=== PATIENT | male | born 1980 | race American Indian/Alaskan Native ===

== ENCOUNTER 2020-10-18 05:00 | Emergency (ER) | payer MEDICARE ==
--- NOTE | 2020-10-18 05:24 | Emergency Department Report ---
ED Back Pain/Injury HPI - General Stated Complaint: BACK PAIN Time Seen by Provider: 10/18/20 05:13 - History of Present Illness MD Complaint: back pain -: month(s) Similar Symptoms Previously: Yes Place: home Radiation: none Severity: mild Quality: dull, aching Consistency: constant Worsens With: movement Context: unknown Associated Symptoms: denies: weakness, chest pain, numbness, incontinence, constipation, headaches, loss of appetite - Related Data Home Medications Medication Instructions Recorded Confirmed Last Taken FLUoxetine HCL [PROzac] 60 mg PO DAILY 04/19/15 04/19/15 Unknown Seroquel 100 mg PO QHS 04/19/15 04/19/15 Unknown clonazePAM [ Klonopin] 0.5 mg PO TID 04/19/15 04/19/15 Unknown risperiDONE [RisperDAL] 4 mg PO BID 04/19/15 04/19/15 Unknown Previous Rx's Medication Instructions Recorded Last Taken Type Ketorolac [Toradol] 10 mg PO Q6H PRN #14 tablet 10/18/20 Unknown Rx methOCARBAMOL [Robaxin TAB] 500 mg PO Q6H PRN #20 tablet 10/18/20 Unknown Rx Allergies Allergy/AdvReac Type Severity Reaction Status Date / Time No Known Allergies Allergy Verified 04/19/15 04:56 ED Review of Systems ROS: Stated complaint: BACK PAIN Other details as noted in HPI Comment: All other systems reviewed and negative ED Past Medical Hx - Past Medical History Hx Psychiatric Treatment: Yes (BIPOLAR SCHIZOPRENIA DEPRESSION) - Surgical History Hx Appendectomy: Yes Additional Surgical History: BACK SURGERY - Social History Smoking Status: Current Every Day Smoker Substance Use Type: None - Medications Home Medications: Home Medications Medication Instructions Recorded Confirmed Last Taken Type FLUoxetine HCL [PROzac] 60 mg PO DAILY 04/19/15 04/19/15 Unknown History Seroquel 100 mg PO QHS 04/19/15 04/19/15 Unknown History clonazePAM [ Klonopin] 0.5 mg PO TID 04/19/15 04/19/15 Unknown History risperiDONE [RisperDAL] 4 mg PO BID 04/19/15 04/19/15 Unknown History Ketorolac [Toradol] 10 mg PO Q6H PRN #14 tablet 10/18/20 Unknown Rx methOCARBAMOL [Robaxin TAB] 500 mg PO Q6H PRN #20 tablet 10/18/20 Unknown Rx ED Physical Exam - General General appearance: alert, in no apparent distress - Head Head exam: Present: atraumatic, normocephalic - Eye Eye exam: Present: normal appearance - ENT ENT exam: Present: mucous membranes moist - Neck Neck exam: Present: normal inspection, full ROM - Respiratory Respiratory exam: Present: normal lung sounds bilaterally. Absent: respiratory distress - Cardiovascular Cardiovascular Exam: Present: regular rate, normal rhythm. Absent: systolic murmur, diastolic murmur, rubs, gallop - GI/Abdominal GI/Abdominal exam: Present: soft, normal bowel sounds - Rectal Rectal exam: Present: deferred - Extremities Exam Extremities exam: Present: normal inspection, normal capillary refill - Back Exam Back exam: Present: normal inspection, muscle spasm, paraspinal tenderness. Absent: CVA tenderness (R), CVA tenderness (L) - Neurological Exam Neurological exam: Present: alert, oriented X3, CN II-XII intact, normal gait, other (Gait coordinated and smooth patient is able to carry 2 very large heavy bags across the emergency department with no complications able to bend over to lift push and pull those large bags as well). Absent: abnormal gait, motor sensory deficit, reflexes normal - Psychiatric Psychiatric exam: Present: normal affect, normal mood. Absent: anxious, flat affect, manic - Skin Skin exam: Present: warm, dry, intact, normal color. Absent: rash ED Medical Decision Making - Medical Decision Making Pt presents the emergency department complaining of back pain most consistent with lumbago back Pain Most Consistent with Strain/Contusion. Differential Diagnosis Includes Lumbar Go Versus Musculoskeletal Spasm, Strain Versus Sciatica. No Back Pain Red Flags on History or Physical. Presentation Not Consistent with Malignancy, Fracture, Cauda Equina, Abdominal Aortic Aneurysm, Viscus Perforation, Pulmonary Embolism, Renal Colic, Pyelonephritis. Patient reports no B symptoms, trauma trauma, incontinence, saddle anesthesia, distal weakness, urinary symptoms and is a febrile. Critical care attestation.: If time is entered above; I have spent that time in minutes in the direct care of this critically ill patient, excluding procedure time. ED Disposition Clinical Impression: Lumbago Disposition: - TO HOME OR SELFCARE Is pt being admited?: No Does the pt Need Aspirin: No Condition: Stable Instructions: Back Injury Prevention, [id number], Back Exercises, [id number], Chronic Back Pain Prescriptions: methOCARBAMOL [Robaxin TAB] 500 mg PO Q6H PRN #20 tablet PRN Reason: back pain and spasms Ketorolac [Toradol] 10 mg PO Q6H PRN #14 tablet PRN Reason: Pain Referrals: SANDRA FREIRE MD [Staff Physician] - 3-5 Days
[2020-10-18 05:39] VITALS: BP 147/93
== END 2020-10-18 05:30 | disposition home or self-care (01) ==
LOC: ED 05:00
DX: M54.5 Low back pain (principal); F31.9 Bipolar disorder, unspecified; F20.9 Schizophrenia, unspecified; F17.200 Nicotine dependence, unspecified, uncomplicated; Z90.49 Acquired absence of other specified parts of digestive tract; Z98.890 Other specified postprocedural states; Z79.899 Other long term (current) drug therapy
CPT/HCPCS: 99281; 99282

== ENCOUNTER 2021-12-23 23:52 | Emergency (ER) | payer MEDICARE ==
[2021-12-24 02:27] VITALS: BP 146/96
[2021-12-24 03:11] LABS: Amphetamine Screen,Urine PRESUMPTIVE NEGATIVE; Benzodiazepines Screen,Urine PRESUMPTIVE NEGATIVE; Cannabinoid Screen,Urine PRESUMPTIVE POSITIVE; Cocaine Screen,Urine PRESUMPTIVE NEGATIVE; Methadone Screen,Urine PRESUMPTIVE NEGATIVE; Opiate Screen,Urine PRESUMPTIVE NEGATIVE
[2021-12-24 03:35] LABS: Bilirubin,Urine NEG (Negative); Blood,Urine NEG (Negative); Color,Urine Yellow (Yellow); Mucus,Urine 1+ /HPF; Urobilinogen,Urine < 2.0 mg/dL (<2.0)
[2021-12-24 03:39] LABS: Basophils # (Auto) 0.1 K/mm3 (0.0-0.1); Basophils % (Auto) 0.9 % (0.0-1.8); Eosinophils # (Auto) 0.2 K/mm3 (0.0-0.4); Eosinophils % (Auto) 2.4 % (0.0-4.3); Hematocrit 36.9 % (35.5-45.6); Lymphocytes # (Auto) 2.9 K/mm3 (1.2-5.4); Lymphocytes % (Auto) 36.1 % (13.4-35.0); Mean Corpuscular HGB Conc 33 % (32-34); Mean Corpuscular Volume 87 fl (84-94); Monocytes # (Auto) 0.9 K/mm3 (0.0-0.8); Monocytes % (Auto) 11.1 % (0.0-7.3); Platelet Count 432 K/mm3 (140-440); Red Blood Count 4.26 M/mm3 (3.65-5.03); Red Cell Distribution Width 15.3 % (13.2-15.2)
[2021-12-24 03:58] LABS: Alanine Aminotransferase 14 units/L (7-56); Albumin 4.5 g/dL (3.9-5); BUN/Creatinine Ratio 8; Blood Urea Nitrogen 11 mg/dL (9-20); Calcium 9.6 mg/dL (8.4-10.2); Hemolysis Index 5
--- NOTE | 2021-12-24 06:16 | Emergency Department Report ---
ED Medical Clearance HPI - General Chief complaint: Medical Clearance Stated complaint: MEDICAL CLEARANCE Time Seen by Provider: 12/24/21 06:10 Source: patient Mode of arrival: Ambulatory - History of Present Illness Initial comments: 41-year-old male with history of bipolar, schizophrenia,depression and illicit drug abuse who presents to the emergency room for medical clearance so he could go to drug rehab. Patient denies any suicidal homicidal ideation. Patient also denies any chest pain, shortness of breath or palpitation. No cold or hot intolerance reported. Patient mentioned that he was trying to stay away from negative energy around him, and also others doing drugs. Patient denies any other modifying or associated factors. Home medications: Home Medications Medication Instructions Recorded Confirmed Last Taken FLUoxetine HCL [PROzac] 60 mg PO DAILY 04/19/15 04/19/15 Unknown Seroquel 100 mg PO QHS 04/19/15 04/19/15 Unknown clonazePAM [ Klonopin] 0.5 mg PO TID 04/19/15 04/19/15 Unknown risperiDONE [RisperDAL] 4 mg PO BID 04/19/15 04/19/15 Unknown Previous Rx's Medication Instructions Recorded Last Taken Type Ketorolac [Toradol] 10 mg PO Q6H PRN #14 tablet 10/18/20 Unknown Rx methOCARBAMOL [Robaxin TAB] 500 mg PO Q6H PRN #20 tablet 10/18/20 Unknown Rx Allergies/Adverse reactions: Allergies Allergy/AdvReac Type Severity Reaction Status Date / Time No Known Allergies Allergy Verified 04/19/15 04:56 ED Review of Systems ROS: Stated complaint: MEDICAL CLEARANCE Other details as noted in HPI Comment: All other systems reviewed and negative Constitutional: denies: weakness Cardiovascular: denies: chest pain, palpitations Psychiatric: other (Medical clearance so he could go to drug rehab) ED Past Medical Hx - Past Medical History Hx Psychiatric Treatment: Yes (BIPOLAR SCHIZOPRENIA DEPRESSION) - Surgical History Hx Appendectomy: Yes Additional Surgical History: BACK SURGERY - Social History Smoking Status: Current Every Day Smoker Substance Use Type: Marijuana - Medications Home Medications: Home Medications Medication Instructions Recorded Confirmed Last Taken Type FLUoxetine HCL [PROzac] 60 mg PO DAILY 04/19/15 04/19/15 Unknown History Seroquel 100 mg PO QHS 04/19/15 04/19/15 Unknown History clonazePAM [ Klonopin] 0.5 mg PO TID 04/19/15 04/19/15 Unknown History risperiDONE [RisperDAL] 4 mg PO BID 04/19/15 04/19/15 Unknown History Ketorolac [Toradol] 10 mg PO Q6H PRN #14 tablet 10/18/20 Unknown Rx methOCARBAMOL [Robaxin TAB] 500 mg PO Q6H PRN #20 tablet 10/18/20 Unknown Rx ED Physical Exam - General Limitations: No Limitations General appearance: alert, in no apparent distress - Head Head exam: Present: normal inspection - Eye Eye exam: Present: normal appearance Pupils: Present: normal accommodation - ENT ENT exam: Present: normal exam, normal orophraynx, mucous membranes moist - Neck Neck exam: Present: normal inspection, full ROM - Respiratory Respiratory exam: Present: normal lung sounds bilaterally. Absent: respiratory distress - Cardiovascular Cardiovascular Exam: Present: regular rate, normal rhythm, normal heart sounds - GI/Abdominal GI/Abdominal exam: Present: soft, normal bowel sounds. Absent: distended, tenderness - Extremities Exam Extremities exam: Present: normal inspection, full ROM, normal capillary refill - Back Exam Back exam: Present: normal inspection - Neurological Exam Neurological exam: Present: alert, oriented X3 - Psychiatric Psychiatric exam: Present: normal affect, normal mood - Skin Skin exam: Present: warm, normal color ED Course Vital Signs 12/24/21 02:21 Temperature 97.8 F Pulse Rate 89 Respiratory 18 Rate Blood Pressure 146/96 O2 Sat by Pulse 100 Oximetry - Reevaluation(s) Reevaluation #1: 12/24/21 06:16 Patient is here for medical clearance to be able to go to drug rehab--we will go ahead and check routine psych labs including illicit drug screening, CBC, CMP and UA for any illicit drugs, electrolyte or infectious process--after reviewing all these labs noted to be unremarkable at this point patient is cleared to go for is drug rehabilitation. ED Medical Decision Making - Lab Data Result diagrams: 12/24/21 02:37 12/24/21 02:37 ED Disposition Disposition: 01 HOME / SELF CARE / HOMELESS Is pt being admited?: No Does the pt Need Aspirin: No Condition: Stable Time of Disposition: 06:18 (Pt is medically cleared )
== END 2021-12-24 06:27 | disposition home or self-care (01) ==
LOC: ED 23:52
DX: Z13.30 Encounter for screening examination for mental health and behavioral disorders, unspecified (principal); F17.200 Nicotine dependence, unspecified, uncomplicated; F10.20 Alcohol dependence, uncomplicated
CPT/HCPCS: 36415; 80053; 80307; 80320; 81001; 85025; 99283; G0480

== ENCOUNTER 2021-12-26 23:51 | Emergency (ER) | payer MEDICARE ==
[2021-12-27 00:39] VITALS: BP 150/102
[2021-12-27] MEDS ORDERED: traMADol 50 MG TAB PO ONE (04:50)
--- NOTE | 2021-12-27 05:22 | Emergency Department Report ---
ED General Adult HPI - General Chief complaint: Back Pain/Injury Stated complaint: BACK PAIN Time Seen by Provider: 12/27/21 04:44 Source: patient Mode of arrival: Ambulatory Limitations: No Limitations - History of Present Illness Initial comments: Patient 41-year-old male with a history of low back pain who presents for low back pain rated at 4/10 radiating to the right lower extremity for the past 2 days. Patient denies new fall injury or trauma. There is no fever there is no chills there is no dizziness lightheadedness or nausea or vomiting. There has been no paralysis or paresthesia. Pain is exacerbated by bending reaching and positioning. Pain is relieved by nothing tried. Patient denies loss or decrease in bowel or bladder function. Patient remains alert oriented x3, patient is amatory with steady gait. Patient with no acute distress. Severity scale (0 -10): 6 - Related Data Home Medications Medication Instructions Recorded Confirmed Last Taken FLUoxetine HCL [PROzac] 60 mg PO DAILY 04/19/15 04/19/15 Unknown Seroquel 100 mg PO QHS 04/19/15 04/19/15 Unknown clonazePAM [ Klonopin] 0.5 mg PO TID 04/19/15 04/19/15 Unknown risperiDONE [RisperDAL] 4 mg PO BID 04/19/15 04/19/15 Unknown Previous Rx's Medication Instructions Recorded Last Taken Type Ketorolac [Toradol] 10 mg PO Q6H PRN #14 tablet 10/18/20 Unknown Rx methOCARBAMOL [Robaxin TAB] 500 mg PO Q6H PRN #20 tablet 10/18/20 Unknown Rx Cyclobenzaprine [Flexeril] 10 mg PO TID PRN #30 tab 12/27/21 Unknown Rx Menthol/Camphor [Cranberry [place] 1 applicatio TP Q6H PRN #1 tab 12/27/21 Unknown Rx Ointment] Naproxen 500 mg PO BID PRN #30 tab 12/27/21 Unknown Rx Allergies Allergy/AdvReac Type Severity Reaction Status Date / Time No Known Allergies Allergy Verified 04/19/15 04:56 ED Review of Systems ROS: Stated complaint: BACK PAIN Other details as noted in HPI Constitutional: denies: chills, fever Eyes: denies: eye pain, eye discharge, vision change ENT: denies: ear pain, throat pain Respiratory: denies: cough, shortness of breath, wheezing Cardiovascular: denies: chest pain, palpitations Endocrine: no symptoms reported Gastrointestinal: denies: abdominal pain, nausea, vomiting, diarrhea Genitourinary: denies: urgency, dysuria Musculoskeletal: back pain, arthralgia. denies: joint swelling Skin: denies: rash, lesions Neurological: denies: headache, weakness, paresthesias Psychiatric: denies: anxiety, depression Hematological/Lymphatic: denies: easy bleeding, easy bruising ED Past Medical Hx - Past Medical History Hx Psychiatric Treatment: Yes (BIPOLAR SCHIZOPRENIA DEPRESSION) - Surgical History Hx Appendectomy: Yes Additional Surgical History: BACK SURGERY - Social History Smoking Status: Current Every Day Smoker Substance Use Type: Marijuana - Medications Home Medications: Home Medications Medication Instructions Recorded Confirmed Last Taken Type FLUoxetine HCL [PROzac] 60 mg PO DAILY 04/19/15 04/19/15 Unknown History Seroquel 100 mg PO QHS 04/19/15 04/19/15 Unknown History clonazePAM [ Klonopin] 0.5 mg PO TID 04/19/15 04/19/15 Unknown History risperiDONE [RisperDAL] 4 mg PO BID 04/19/15 04/19/15 Unknown History Ketorolac [Toradol] 10 mg PO Q6H PRN #14 tablet 10/18/20 Unknown Rx methOCARBAMOL [Robaxin TAB] 500 mg PO Q6H PRN #20 tablet 10/18/20 Unknown Rx Cyclobenzaprine [Flexeril] 10 mg PO TID PRN #30 tab 12/27/21 Unknown Rx Menthol/Camphor [Cranberry [place] 1 applicatio TP Q6H PRN #1 tab 12/27/21 Unknown Rx Ointment] Naproxen 500 mg PO BID PRN #30 tab 12/27/21 Unknown Rx ED Physical Exam - General Limitations: No Limitations General appearance: alert, in no apparent distress - Head Head exam: Present: normocephalic, normal inspection - Eye Eye exam: Present: normal appearance, PERRL, EOMI Pupils: Present: normal accommodation - ENT ENT exam: Present: mucous membranes moist - Neck Neck exam: Present: normal inspection, full ROM. Absent: tenderness - Respiratory Respiratory exam: Present: normal lung sounds bilaterally. Absent: respiratory distress, wheezes, stridor, chest wall tenderness - Cardiovascular Cardiovascular Exam: Present: regular rate, normal rhythm, normal heart sounds. Absent: systolic murmur, diastolic murmur, rubs, gallop - GI/Abdominal GI/Abdominal exam: Present: soft, normal bowel sounds. Absent: distended, tenderness - Rectal Rectal exam: Present: deferred - Extremities Exam Extremities exam: Present: normal inspection, full ROM, normal capillary refill. Absent: tenderness - Back Exam Back exam: Present: normal inspection, full ROM, muscle spasm, paraspinal tenderness. Absent: CVA tenderness (R), CVA tenderness (L), vertebral tenderness - Neurological Exam Neurological exam: Present: alert, oriented X3, CN II-XII intact, normal gait, reflexes normal. Absent: motor sensory deficit - Expanded Neurological Exam Expanded Patient oriented to: Present: person, place, time Speech: Present: fluid speech Upper motor neuron: [place] Neglect: Normal, Pronator Drift: Normal, Babinski Sign: Normal Motor strength exam: RUE: 5, LUE: 5, RLE: 5, LLE: 5 Best Eye Response ([place]): (4) open spontaneously Best Motor Response ([place]): (6) obeys commands Best Verbal Response ([place]): (5) oriented [place] Total: 15 - Psychiatric Psychiatric exam: Present: normal affect, normal mood - Skin Skin exam: Present: warm, dry, intact, normal color. Absent: rash ED Course Vital Signs 12/27/21 00:38 Temperature 98.2 F Pulse Rate 97 H Respiratory 18 Rate Blood Pressure 150/102 O2 Sat by Pulse 100 Oximetry ED Medical Decision Making - Medical Decision Making This is acute on chronic low back pain flare. Symptoms generally managed with NSAIDs. There is no posterior vertebral point tenderness. Range of motion is intact and unrestricted. There is no swelling ecchymosis or step-off to her back. Patient is amatory with steady gait. Plan NSAIDs, muscle relaxant, analgesic balm, follow-up with his doctor in 2 to 3 days. Return to emergency department should symptoms worsen. Patient verbalized agreement and understanding with discharge plan. Patient DC'd home in stable condition at this time. Critical care attestation.: If time is entered above; I have spent that time in minutes in the direct care of this critically ill patient, excluding procedure time. ED Disposition Clinical Impression: Low back strain Qualifiers: Encounter type: initial encounter Qualified Code(s): S39.012A - Strain of muscle, fascia and tendon of lower back, initial encounter Disposition: HOME / SELF CARE / HOMELESS Is pt being admited?: No Does the pt Need Aspirin: No Condition: Stable Instructions: Low Back Sprain or Strain Rehab-SportsMed Additional Instructions: Take medications as prescribed, use moist heat therapy as directed. Follow-up with your doctor in 2 to 3 days. Return to emergency department should symptoms worsen. Prescriptions: Cyclobenzaprine [Flexeril] 10 mg PO TID PRN #30 tab PRN Reason: Muscle Spasm Naproxen 500 mg PO BID PRN #30 tab PRN Reason: pain Menthol/Camphor [Cranberry [place] Ointment] 1 applicatio TP Q6H PRN #1 tab PRN Reason: pain Referrals: JAYA BLACK MD [Staff Physician] - 3-5 Days Forms: Work/School Release Form(ED) Time of Disposition: 05:26
== END 2021-12-27 05:40 | disposition home or self-care (01) ==
LOC: ED 23:51
DX: S39.012A Strain of muscle, fascia and tendon of lower back, initial encounter (principal); F17.200 Nicotine dependence, unspecified, uncomplicated; F12.90 Cannabis use, unspecified, uncomplicated; F31.9 Bipolar disorder, unspecified; F20.9 Schizophrenia, unspecified; Z90.49 Acquired absence of other specified parts of digestive tract; X58.XXXA Exposure to other specified factors, initial encounter; Y93.89 Activity, other specified; Y92.89 Other specified places as the place of occurrence of the external cause; Y99.8 Other external cause status
CPT/HCPCS: 99282

== ENCOUNTER 2021-12-30 22:32 | Emergency (ER) | payer MEDICARE ==
[2021-12-30 22:57] VITALS: BP 146/91
== END 2021-12-31 06:23 | disposition still patient (30) ==
LOC: ED 22:32
DX: M54.9 Dorsalgia, unspecified (principal); M79.606 Pain in leg, unspecified; Z53.21 Procedure and treatment not carried out due to patient leaving prior to being seen by health care provider

== ENCOUNTER 2021-12-31 12:21 | Emergency (ER) | payer MEDICARE ==
[2021-12-31 12:30] VITALS: BP 124/85
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
== END 2021-12-31 15:34 | disposition home or self-care (01) ==
LOC: ED 12:21
DX: G89.4 Chronic pain syndrome (principal); M62.830 Muscle spasm of back; M54.42 Lumbago with sciatica, left side; F17.200 Nicotine dependence, unspecified, uncomplicated; F12.90 Cannabis use, unspecified, uncomplicated
CPT/HCPCS: 99282

== ENCOUNTER 2022-01-06 | Emergency (ER) | payer MEDICARE ==
[2022-01-06 00:46] LABS: Basophils # (Auto) 0.1 K/mm3 (0.0-0.1); Basophils % (Auto) 1.2 % (0.0-1.8); Eosinophils # (Auto) 0.2 K/mm3 (0.0-0.4); Eosinophils % (Auto) 2.1 % (0.0-4.3); Hematocrit 41.5 % (35.5-45.6); Hemoglobin 13.6 gm/dl (11.8-15.2); Lymphocytes # (Auto) 3.7 K/mm3 (1.2-5.4); Lymphocytes % (Auto) 48.1 % (13.4-35.0); Mean Corpuscular HGB Conc 33 % (32-34); Mean Corpuscular Volume 87 fl (84-94); Monocytes % (Auto) 12.4 % (0.0-7.3); Platelet Count 374 K/mm3 (140-440); Red Cell Distribution Width 15.1 % (13.2-15.2)
--- NOTE | 2022-01-06 00:50 | Emergency Department Report ---
ED Psych HPI - General Chief Complaint: Psych Stated Complaint: MH Time Seen by Provider: 01/06/22 00:33 Source: patient Mode of arrival: Ambulatory - History of Present Illness Initial Comments: Patient is 42 years old male with history of schizoaffective disorder and substance abuse. Patient presented to the ER for mental health evaluation. Patient stated that he is hearing voices asking him to kill himself. Patient stated that his plan is to overdose on his sleeping pill. Patient denied any homicidal ideation. No visual hallucination. Patient admitted that he has been using methamphetamine recently. MD Complaint: suicidal ideation -: days(s) Associated Psychiatric Symptoms: depression, suicidal ideation, racing thoughts, auditory hallucinations Quality: constant Context: recent drug abuse Associated Symptoms: denies other symptoms If Self Harm: admits thoughts of, has plan, intentional overdose - Related Data Home Medications Medication Instructions Recorded Confirmed Last Taken FLUoxetine HCL [PROzac] 60 mg PO DAILY 04/19/15 04/19/15 Unknown Seroquel 100 mg PO QHS 04/19/15 04/19/15 Unknown clonazePAM [ Klonopin] 0.5 mg PO TID 04/19/15 04/19/15 Unknown risperiDONE [RisperDAL] 4 mg PO BID 04/19/15 04/19/15 Unknown Previous Rx's Medication Instructions Recorded Last Taken Type Ketorolac [Toradol] 10 mg PO Q6H PRN #14 tablet 10/18/20 Unknown Rx methOCARBAMOL [Robaxin TAB] 500 mg PO Q6H PRN #20 tablet 10/18/20 Unknown Rx Cyclobenzaprine [Flexeril] 10 mg PO TID PRN #30 tab 12/27/21 Unknown Rx Menthol/Camphor [[place] 1 applicatio TP Q6H PRN #1 tab 12/27/21 Unknown Rx Ointment] Naproxen 500 mg PO BID PRN #30 tab 12/27/21 Unknown Rx Naproxen 500 mg PO Q12H PRN #30 tab 12/31/21 Unknown Rx methOCARBAMOL [Robaxin TAB] 750 mg PO Q8H PRN #60 tab 12/31/21 Unknown Rx predniSONE [Deltasone] 60 mg PO QDAY #15 tab 12/31/21 Unknown Rx traMADoL [Ultram] 50 mg PO Q6HR PRN #12 tablet 12/31/21 Unknown Rx OLANZapine [Olanzapine] 10 mg PO BID #60 01/06/22 Unknown Rx QUEtiapine [SEROquel] 100 mg PO QHS #30 tab 01/06/22 Unknown Rx amLODIPine 10 mg PO DAILY #30 tab 01/06/22 Unknown Rx busPIRone [Buspar] 15 mg PO TID #90 tab 01/06/22 Unknown Rx Allergies Allergy/AdvReac Type Severity Reaction Status Date / Time No Known Allergies Allergy Verified 12/31/21 12:30 ED Review of Systems ROS: Stated complaint: MH Other details as noted in HPI Comment: All other systems reviewed and negative Constitutional: denies: chills, fever Respiratory: denies: cough, shortness of breath, SOB with exertion, SOB at rest, wheezing Cardiovascular: denies: chest pain, palpitations, dyspnea on exertion Gastrointestinal: denies: abdominal pain, nausea, vomiting, diarrhea, constipation, hematemesis, melena Musculoskeletal: denies: back pain Neurological: denies: headache, weakness, numbness, paresthesias, confusion Psychiatric: depression, auditory hallucinations, suicidal thoughts. denies: homicidal thoughts ED Past Medical Hx - Past Medical History Previous Medical History?: Yes Hx Hypertension: Yes Hx Psychiatric Treatment: Yes (BIPOLAR SCHIZOPRENIA DEPRESSION) Additional medical history: sciatica. back pain - Surgical History Past Surgical History?: Yes Hx Appendectomy: Yes Additional Surgical History: BACK SURGERY - Social History Smoking Status: Current Every Day Smoker Substance Use Type: Alcohol, Marijuana, Methamphetamines - Medications Home Medications: Home Medications Medication Instructions Recorded Confirmed Last Taken Type FLUoxetine HCL [PROzac] 60 mg PO DAILY 04/19/15 04/19/15 Unknown History Seroquel 100 mg PO QHS 04/19/15 04/19/15 Unknown History clonazePAM [ Klonopin] 0.5 mg PO TID 04/19/15 04/19/15 Unknown History risperiDONE [RisperDAL] 4 mg PO BID 04/19/15 04/19/15 Unknown History Ketorolac [Toradol] 10 mg PO Q6H PRN #14 tablet 10/18/20 Unknown Rx methOCARBAMOL [Robaxin TAB] 500 mg PO Q6H PRN #20 tablet 10/18/20 Unknown Rx Cyclobenzaprine [Flexeril] 10 mg PO TID PRN #30 tab 12/27/21 Unknown Rx Menthol/Camphor [[place] 1 applicatio TP Q6H PRN #1 tab 12/27/21 Unknown Rx Ointment] Naproxen 500 mg PO BID PRN #30 tab 12/27/21 Unknown Rx Naproxen 500 mg PO Q12H PRN #30 tab 12/31/21 Unknown Rx methOCARBAMOL [Robaxin TAB] 750 mg PO Q8H PRN #60 tab 12/31/21 Unknown Rx predniSONE [Deltasone] 60 mg PO QDAY #15 tab 12/31/21 Unknown Rx traMADoL [Ultram] 50 mg PO Q6HR PRN #12 tablet 12/31/21 Unknown Rx OLANZapine [Olanzapine] 10 mg PO BID #60 01/06/22 Unknown Rx QUEtiapine [SEROquel] 100 mg PO QHS #30 tab 01/06/22 Unknown Rx amLODIPine 10 mg PO DAILY #30 tab 01/06/22 Unknown Rx busPIRone [Buspar] 15 mg PO TID #90 tab 01/06/22 Unknown Rx ED Physical Exam - General Limitations: No Limitations General appearance: alert, in no apparent distress - Head Head exam: Present: atraumatic, normocephalic, normal inspection - Eye Eye exam: Present: normal appearance - ENT ENT exam: Present: normal exam, normal orophraynx, mucous membranes moist - Neck Neck exam: Present: normal inspection, full ROM. Absent: tenderness, meningismus - Respiratory Respiratory exam: Present: normal lung sounds bilaterally - Cardiovascular Cardiovascular Exam: Present: regular rate, normal rhythm, normal heart sounds - GI/Abdominal GI/Abdominal exam: Present: soft, normal bowel sounds. Absent: distended, tenderness, guarding, rebound, rigid, organomegaly, mass, bruit, pulsatile mass, hernia - Back Exam Back exam: Present: normal inspection, full ROM. Absent: CVA tenderness (R), CVA tenderness (L) - Neurological Exam Neurological exam: Present: alert, oriented X3, CN II-XII intact - Psychiatric Psychiatric exam: Present: suicidal ideation. Absent: manic, homicidal ideation - Skin Skin exam: Present: warm, intact, normal color ED Course Vital Signs 01/06/22 01/06/22 01/06/22 00:02 00:29 00:30 Temperature 97.6 F 98.7 F Pulse Rate 106 H 90 Respiratory 18 16 Rate Blood Pressure 148/111 Blood Pressure 144/99 [Left] O2 Sat by Pulse 99 98 98 Oximetry 01/06/22 01/06/22 01/06/22 00:32 09:01 09:02 Temperature 98.7 F 98.9 F Pulse Rate 90 88 Respiratory 16 18 Rate Blood Pressure 144/99 Blood Pressure 137/98 [Left] O2 Sat by Pulse 98 99 99 Oximetry ED Medical Decision Making - Lab Data Result diagrams: 01/06/22 00:21 01/06/22 00:21 Critical care attestation.: If time is entered above; I have spent that time in minutes in the direct care of this critically ill patient, excluding procedure time. ED Disposition Clinical Impression: Schizoaffective disorder, Methamphetamine use Disposition: 01 HOME / SELF CARE / HOMELESS Is pt being admited?: No Condition: Stable Instructions: Amphetamines Use Disorder Prescriptions: QUEtiapine [SEROquel] 100 mg PO QHS #30 tab amLODIPine 10 mg PO DAILY #30 tab busPIRone [Buspar] 15 mg PO TID #90 tab OLANZapine [Olanzapine] 10 mg PO BID #60 Referrals: ROSA MURPHY MD [Primary Care Provider] - 3-5 Days
[2022-01-06 01:03] LABS: BUN/Creatinine Ratio 12; Blood Urea Nitrogen 16 mg/dL (9-20); Calcium 10.2 mg/dL (8.4-10.2); Hemolysis Index 7
[2022-01-06 01:31] LABS: Bilirubin,Urine NEG (Negative); Blood,Urine NEG (Negative); Color,Urine Yellow (Yellow); Mucus,Urine 3+ /HPF
[2022-01-06 01:34] LABS: Amphetamine Screen,Urine PRESUMPTIVE POSITIVE; Benzodiazepines Screen,Urine PRESUMPTIVE NEGATIVE; Cannabinoid Screen,Urine PRESUMPTIVE POSITIVE; Cocaine Screen,Urine PRESUMPTIVE NEGATIVE; Methadone Screen,Urine PRESUMPTIVE NEGATIVE; Opiate Screen,Urine PRESUMPTIVE NEGATIVE
[2022-01-06 09:02] VITALS: BP 137/98
--- NOTE | 2022-01-06 09:17 | Consultation ---
History of Present Illness - Reason for Consult Consult date: 01/06/22 Reason for consult: SI, psyschosis, drug use - History of Present Psychiatric Illness The patient was seen today. He is calm, cooperative and polite. The patient says he was heaving voices when he came in. He says "I was doing a little meth." He says "it made me start hearing stuff." He says "I really just need my medications." He denies hallucinations of any kind at present. The patient says he has a history of schizoaffective disorder and hypertension. The patient denies SI/HI. He says "I was when I came in, but it's the drugs. I just need my meds." The patient says he takes zyprexa 10 twice daily, buspar 15 three times daily, seroquel 100 at bedtime and norvasc 10 daily. PAST PSYCHIATRIC HISTORY: Diagnoses: schizoaffective Suicide attempts or Self-harm behavior: Denies Prior psychiatric hospitalizations: Yes Substance Abuse history: methamphetamines Previous psychiatric medications tried: seroquel, buspar, olanzapine Outpatient treatment: yes PAST MEDICAL HISTORY: None reported or document Family Psychiatric History: None reported or documented SOCIAL HISTORY Marital Status: Living Arrangements: with someone Employment Status: Disabled Access to guns/weapons: denies Education: History of Abuse: Denies Legal History: Denies REVIEW OF SYSTEMS Constitutional: Negative for weight loss ENT: Negative for stridor Respiratory: Negative for cough or hemoptysis All other systems reviewed and are negative MENTAL STATUS EXAMINATION General Appearance and Behavior: Age appropriate, wearing appropriate clothes, cooperative, polite with questioning, good eye contact, calm, polite Cooperation: cooperative Psychomotor Behavior: Psychomotor normal Mood: much better Affect and affective range: congruent with stated mood Thought Process: goal directed Thought Content: None Speech: Normal volume, Regular rate and rhythm Suicidal Ideation: Denies Homicidal Ideation: Denies hallucination: Denies Delusions: None elicited Impulse Control: limited Insight and Judgment: Limited Memory: Intact Attention: attentive Orientation: Alert and oriented Diagnoses: 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 The patient understands that if SI/HI arise he is to seek immediate assistance. The patient to abstain from all illicit drug use He is to follow up with outpatient psych and primary in 7 to 14 days upon discharge The supervisor park workers is to give him all necessary resources including drug rehab, and further discuss safety plan. Will sign off. Thank you for the consult. Case staffed with Dr. Mcneil Medications and Allergies Allergies Allergy/AdvReac Type Severity Reaction Status Date / Time No Known Allergies Allergy Verified 12/31/21 12:30 Home Medications Medication Instructions Recorded Confirmed Last Taken Type FLUoxetine HCL [PROzac] 60 mg PO DAILY 04/19/15 04/19/15 Unknown History Seroquel 100 mg PO QHS 04/19/15 04/19/15 Unknown History clonazePAM [ Klonopin] 0.5 mg PO TID 04/19/15 04/19/15 Unknown History risperiDONE [RisperDAL] 4 mg PO BID 04/19/15 04/19/15 Unknown History Ketorolac [Toradol] 10 mg PO Q6H PRN #14 tablet 10/18/20 Unknown Rx methOCARBAMOL [Robaxin TAB] 500 mg PO Q6H PRN #20 tablet 10/18/20 Unknown Rx Cyclobenzaprine [Flexeril] 10 mg PO TID PRN #30 tab 12/27/21 Unknown Rx Menthol/Camphor [[place] 1 applicatio TP Q6H PRN #1 tab 12/27/21 Unknown Rx Ointment] Naproxen 500 mg PO BID PRN #30 tab 12/27/21 Unknown Rx Naproxen 500 mg PO Q12H PRN #30 tab 12/31/21 Unknown Rx methOCARBAMOL [Robaxin TAB] 750 mg PO Q8H PRN #60 tab 12/31/21 Unknown Rx predniSONE [Deltasone] 60 mg PO QDAY #15 tab 12/31/21 Unknown Rx traMADoL [Ultram] 50 mg PO Q6HR PRN #12 tablet 12/31/21 Unknown Rx OLANZapine [Olanzapine] 10 mg PO BID #60 01/06/22 Unknown Rx QUEtiapine [SEROquel] 100 mg PO QHS #30 tab 01/06/22 Unknown Rx amLODIPine 10 mg PO DAILY #30 tab 01/06/22 Unknown Rx busPIRone [Buspar] 15 mg PO TID #90 tab 01/06/22 Unknown Rx Mental Status Exam - Vital signs Last Vital Signs Temp 98.9 F 01/06/22 09:01 Pulse 88 01/06/22 09:01 Resp 18 01/06/22 09:01 BP 137/98 01/06/22 09:01 Pulse Ox 99 01/06/22 09:02 Results Result Diagrams: 01/06/22 00:21 01/06/22 00:21 Abnormal lab results 01/06/22 01/06/22 01/06/22 Range/Units 00:21 00:21 00:21 Lymph % (Auto) (13.4-35.0) % [place] % (Auto) (0.0-7.3) % [place] # (Auto) (0.0-0.8) K/mm3 Seg Neutrophils % (40.0-70.0) % Glucose 105 H (75-100) mg/dL Salicylates < 0.3 L (2.8-20.0) mg/dL Acetaminophen 5.0 L (10.0-30.0) ug/mL 01/06/22 Range/Units 00:21 Lymph % (Auto) 48.1 H (13.4-35.0) % [place] % (Auto) 12.4 H (0.0-7.3) % [place] # (Auto) 1.0 H (0.0-0.8) K/mm3 Seg Neutrophils % 36.2 L (40.0-70.0) % Glucose (75-100) mg/dL Salicylates (2.8-20.0) mg/dL Acetaminophen (10.0-30.0) ug/mL All other labs normal.
== END 2022-01-06 12:32 | disposition home or self-care (01) ==
LOC: ED
DX: F25.9 Schizoaffective disorder, unspecified (principal); F15.90 Other stimulant use, unspecified, uncomplicated; F17.200 Nicotine dependence, unspecified, uncomplicated; F10.20 Alcohol dependence, uncomplicated; F12.90 Cannabis use, unspecified, uncomplicated; I10 Essential (primary) hypertension
CPT/HCPCS: 36415; 80048; 80307; 80320; 81001; 85025; 99284; G0480

== ENCOUNTER 2022-01-15 13:16 | Emergency (ER) | payer MEDICARE ==
[2022-01-15 13:24] VITALS: BP 149/104
== END 2022-01-16 04:00 | disposition left against medical advice (07) ==
LOC: ED 13:16
DX: I10 Essential (primary) hypertension (principal); Z53.21 Procedure and treatment not carried out due to patient leaving prior to being seen by health care provider

== ENCOUNTER 2022-01-15 23:57 | Emergency (ER) | payer MEDICARE ==
[2022-01-16 00:40] VITALS: BP 147/106
--- NOTE | 2022-01-16 04:44 | Emergency Department Report ---
ED General Adult HPI - General Chief complaint: Medical Clearance Stated complaint: BLOOD PRESSURE PUI?: No Time Seen by Provider: 01/16/22 04:13 Source: patient Mode of arrival: Ambulatory Limitations: No Limitations - History of Present Illness Initial comments: 41-year-old male came in today concerned that his blood pressure is elevated stated he needs blood pressure medication. According to patient he said that he wants to dose of losartan at 25 mg and also Norvasc 10 mg patient currently denies any other discomfort. Patient current denies fever chill night sweat dizziness blurred vision lightheadedness headache tinnitus ear pain runny nose sore throat loss of taste or smell chest pain palpitation short breath cough abdominal pain nausea vomiting or constipation joint pain muscle pain new rash and heat or cold intolerance. Severity scale (0 -10): 0 - Related Data Home Medications Medication Instructions Recorded Confirmed Last Taken FLUoxetine HCL [PROzac] 60 mg PO DAILY 04/19/15 04/19/15 Unknown Seroquel 100 mg PO QHS 04/19/15 04/19/15 Unknown clonazePAM [ Klonopin] 0.5 mg PO TID 04/19/15 04/19/15 Unknown risperiDONE [RisperDAL] 4 mg PO BID 04/19/15 04/19/15 Unknown Previous Rx's Medication Instructions Recorded Last Taken Type Ketorolac [Toradol] 10 mg PO Q6H PRN #14 tablet 10/18/20 Unknown Rx methOCARBAMOL [Robaxin TAB] 500 mg PO Q6H PRN #20 tablet 10/18/20 Unknown Rx Cyclobenzaprine [Flexeril] 10 mg PO TID PRN #30 tab 12/27/21 Unknown Rx Menthol/Camphor [[place] 1 applicatio TP Q6H PRN #1 tab 12/27/21 Unknown Rx Ointment] Naproxen 500 mg PO BID PRN #30 tab 12/27/21 Unknown Rx Naproxen 500 mg PO Q12H PRN #30 tab 12/31/21 Unknown Rx methOCARBAMOL [Robaxin TAB] 750 mg PO Q8H PRN #60 tab 12/31/21 Unknown Rx predniSONE [Deltasone] 60 mg PO QDAY #15 tab 12/31/21 Unknown Rx traMADoL [Ultram] 50 mg PO Q6HR PRN #12 tablet 12/31/21 Unknown Rx OLANZapine [Olanzapine] 10 mg PO BID #60 01/06/22 Unknown Rx QUEtiapine [SEROquel] 100 mg PO QHS #30 tab 01/06/22 Unknown Rx amLODIPine 10 mg PO DAILY #30 tab 01/06/22 Unknown Rx busPIRone [Buspar] 15 mg PO TID #90 tab 01/06/22 Unknown Rx Allergies Allergy/AdvReac Type Severity Reaction Status Date / Time No Known Allergies Allergy Verified 01/15/22 13:24 ED Review of Systems ROS: Stated complaint: BLOOD PRESSURE Other details as noted in HPI Comment: All other systems reviewed and negative Constitutional: see HPI Eyes: as per HPI ENT: as per HPI Respiratory: see HPI Cardiovascular: as per HPI Endocrine: see HPI Gastrointestinal: as per HPI Genitourinary: as per HPI Musculoskeletal: as per HPI Skin: as per HPI Neurological: as per HPI Psychiatric: as per HPI Hematological/Lymphatic: as per HPI ED Past Medical Hx - Past Medical History Previous Medical History?: Yes Hx Hypertension: Yes Hx Psychiatric Treatment: Yes (BIPOLAR SCHIZOPRENIA DEPRESSION) Additional medical history: sciatica. back pain - Surgical History Hx Appendectomy: Yes Additional Surgical History: BACK SURGERY - Social History Smoking Status: Current Every Day Smoker Substance Use Type: Alcohol, Marijuana, Methamphetamines - Medications Home Medications: Home Medications Medication Instructions Recorded Confirmed Last Taken Type FLUoxetine HCL [PROzac] 60 mg PO DAILY 04/19/15 04/19/15 Unknown History Seroquel 100 mg PO QHS 04/19/15 04/19/15 Unknown History clonazePAM [ Klonopin] 0.5 mg PO TID 04/19/15 04/19/15 Unknown History risperiDONE [RisperDAL] 4 mg PO BID 04/19/15 04/19/15 Unknown History Ketorolac [Toradol] 10 mg PO Q6H PRN #14 tablet 10/18/20 Unknown Rx methOCARBAMOL [Robaxin TAB] 500 mg PO Q6H PRN #20 tablet 10/18/20 Unknown Rx Cyclobenzaprine [Flexeril] 10 mg PO TID PRN #30 tab 12/27/21 Unknown Rx Menthol/Camphor [[place] 1 applicatio TP Q6H PRN #1 tab 12/27/21 Unknown Rx Ointment] Naproxen 500 mg PO BID PRN #30 tab 12/27/21 Unknown Rx Naproxen 500 mg PO Q12H PRN #30 tab 12/31/21 Unknown Rx methOCARBAMOL [Robaxin TAB] 750 mg PO Q8H PRN #60 tab 12/31/21 Unknown Rx predniSONE [Deltasone] 60 mg PO QDAY #15 tab 12/31/21 Unknown Rx traMADoL [Ultram] 50 mg PO Q6HR PRN #12 tablet 12/31/21 Unknown Rx OLANZapine [Olanzapine] 10 mg PO BID #60 01/06/22 Unknown Rx QUEtiapine [SEROquel] 100 mg PO QHS #30 tab 01/06/22 Unknown Rx amLODIPine 10 mg PO DAILY #30 tab 01/06/22 Unknown Rx busPIRone [Buspar] 15 mg PO TID #90 tab 01/06/22 Unknown Rx ED Physical Exam - General Limitations: No Limitations General appearance: alert, in no apparent distress - Head Head exam: Present: atraumatic, normocephalic, normal inspection - Eye Eye exam: Present: normal appearance, PERRL, EOMI Pupils: Present: normal accommodation - ENT ENT exam: Present: normal exam - Neck Neck exam: Present: normal inspection - Respiratory Respiratory exam: Present: normal lung sounds bilaterally - Cardiovascular Cardiovascular Exam: Present: regular rate, normal rhythm - GI/Abdominal GI/Abdominal exam: Present: soft - exam: Present: normal inspection External exam: Present: normal external exam - Extremities Exam Extremities exam: Present: normal inspection, full ROM - Back Exam Back exam: Present: normal inspection, full ROM - Neurological Exam Neurological exam: Present: oriented X3, CN II-XII intact - Psychiatric Psychiatric exam: Present: normal affect, normal mood - Skin Skin exam: Present: normal color ED Course Vital Signs 01/16/22 00:39 Temperature 97.9 F Pulse Rate 97 H Respiratory 16 Rate Blood Pressure 147/106 [Left] O2 Sat by Pulse 98 Oximetry - Reevaluation(s) Reevaluation #1: 01/16/22 04:43 At the time of my evaluation blood pressure is less than 180/120; therefore patient is denying hypertensive crisis range such as hypertensive emergency with hypertensive urgency. Patient was further make follow-up with primary care provider to be seen within 3 days for further blood pressure evaluation and also management. Patient is medically clear. Critical care attestation.: If time is entered above; I have spent that time in minutes in the direct care of this critically ill patient, excluding procedure time. ED Disposition Clinical Impression: Elevated blood pressure reading Disposition: 01 HOME / SELF CARE / HOMELESS Is pt being admited?: No Does the pt Need Aspirin: No Condition: Stable Instructions: Managing Your Hypertension Referrals: ROSA MURPHY MD [Primary Care Provider] - 3-5 Days Time of Disposition: 04:44
== END 2022-01-16 05:09 | disposition home or self-care (01) ==
LOC: ED 23:57
DX: I10 Essential (primary) hypertension (principal); F17.200 Nicotine dependence, unspecified, uncomplicated; F10.20 Alcohol dependence, uncomplicated; F12.90 Cannabis use, unspecified, uncomplicated; Z90.89 Acquired absence of other organs
CPT/HCPCS: 99282

== ENCOUNTER 2022-01-24 22:45 | Emergency (ER) | payer MEDICARE ==
[2022-01-24 23:41] LABS: Mucus,Urine FEW /HPF; RBC,Urine < 1.0 /HPF (0.0-6.0)
[2022-01-24 23:48] LABS: Amphetamine Screen,Urine PRESUMPTIVE NEGATIVE; Benzodiazepines Screen,Urine PRESUMPTIVE NEGATIVE; Bilirubin,Urine NEG (Negative); Blood,Urine NEG (Negative); Cannabinoid Screen,Urine PRESUMPTIVE POSITIVE; Cocaine Screen,Urine PRESUMPTIVE NEGATIVE; Color,Urine Yellow (Yellow); Methadone Screen,Urine PRESUMPTIVE NEGATIVE; Opiate Screen,Urine PRESUMPTIVE NEGATIVE; Protein,Urine <15 mg/dL mg/dL (Negative); Urobilinogen,Urine < 2.0 mg/dL (<2.0)
--- NOTE | 2022-01-25 00:07 | XRay Report ---
Right hand, 3 views HISTORY: Injury COMPARISON: None FINDINGS: Acute fracture of the right fourth metacarpal neck with apex dorsal and ulnar angulation. A cute minimally displaced and impacted fracture of the base of the right fifth metacarpal with mild ap ex dorsal angulation. No additional fracture. No joint malalignment. Soft tissue swelling of the dors um of the hand. IMPRESSION: Acute fractures of the fourth and fifth metacarpal. Signer Name: Ti Ibanez MD Signed: 01/25/2022 12:02 AM Workstation Name: [id number]
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
[2022-01-25 00:58] LABS: Basophils # (Auto) 0.1 K/mm3 (0.0-0.1); Basophils % (Auto) 0.6 % (0.0-1.8); Eosinophils # (Auto) 0.1 K/mm3 (0.0-0.4); Eosinophils % (Auto) 1.1 % (0.0-4.3); Hematocrit 38.3 % (35.5-45.6); Hemoglobin 12.7 gm/dl (11.8-15.2); Lymphocytes # (Auto) 2.8 K/mm3 (1.2-5.4); Lymphocytes % (Auto) 31.3 % (13.4-35.0); Mean Corpuscular HGB Conc 33 % (32-34); Mean Corpuscular Volume 85 fl (84-94); Monocytes # (Auto) 0.9 K/mm3 (0.0-0.8); Monocytes % (Auto) 10.3 % (0.0-7.3); Platelet Count 408 K/mm3 (140-440); Red Blood Count 4.49 M/mm3 (3.65-5.03)
[2022-01-25 01:17] LABS: BUN/Creatinine Ratio 11; Blood Urea Nitrogen 14 mg/dL (9-20); Calcium 10.1 mg/dL (8.4-10.2); Hemolysis Index 3
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
--- NOTE | 2022-01-25 12:03 | Event Note ---
Date: 01/25/22 NO SIGNIFICANT EVENT; PATIENT REMAINS HEMODYNAMICALLY STABLE. COVID TEST PLACED FOR INPATIENT PSYCH REFERRAL. - [facility]
[2022-01-25] MEDS: HYDROcodone/ACETAMINOPHEN 5-325 MG TAB PO PRN (15:25)
[2022-01-25] MEDS: busPIRone 10 MG TAB PO SCH ×2 (15:25→20:39)
[2022-01-25] MEDS ORDERED: QUEtiapine 100 MG TAB PO SCH (22:00)
[2022-01-25] MEDS ORDERED: NON-FORMULARY EACH (Seroquel 100 MG) PO SCH (22:00)
[2022-01-26] MEDS: HYDROcodone/ACETAMINOPHEN 5-325 MG TAB PO PRN ×2 (01:11→08:40)
[2022-01-26 09:42] VITALS: BP 154/98
[2022-01-26] MEDS ORDERED: NON-FORMULARY EACH (Losartan 25 MG) PO SCH (10:15)
[2022-01-26] MEDS ORDERED: amLODIPine 10 MG TAB PO SCH (11:00)
[2022-01-26] MEDS ORDERED: LOSARTAN 25 MG TAB PO SCH (12:00)
== END 2022-01-26 10:45 ==
LOC: ED 22:45
DX: S62.316A Displaced fracture of base of fifth metacarpal bone, right hand, initial encounter for closed fracture (principal); R45.851 Suicidal ideations; F12.90 Cannabis use, unspecified, uncomplicated; Z20.822 Contact with and (suspected) exposure to COVID-19; I10 Essential (primary) hypertension; F10.20 Alcohol dependence, uncomplicated; F17.200 Nicotine dependence, unspecified, uncomplicated; X58.XXXA Exposure to other specified factors, initial encounter; Y93.89 Activity, other specified; Y92.89 Other specified places as the place of occurrence of the external cause; Y99.8 Other external cause status
CPT/HCPCS: 29125; 36415; 73130; 80048; 80307; 81001; 85025; 99285; U0003; 80320; 99283; G0480

== ENCOUNTER 2022-03-06 00:02 | Emergency (ER) | payer MEDICARE ==
[2022-03-06 00:26] VITALS: BP 152/102
== END 2022-03-06 02:00 | disposition left against medical advice (07) ==
LOC: ED 00:02
DX: N64.4 Mastodynia (principal); Z53.21 Procedure and treatment not carried out due to patient leaving prior to being seen by health care provider

== ENCOUNTER 2022-03-06 10:06 | Emergency (ER) | payer MEDICARE | END 2022-03-06 11:00 | disposition left against medical advice (07) | LOC: ED 10:06 | DX: M79.603 Pain in arm, unspecified (principal); Z53.21 Procedure and treatment not carried out due to patient leaving prior to being seen by health care provider ==

== ENCOUNTER 2022-03-22 23:52 | Emergency (ER) | payer MEDICARE | END 2022-03-23 03:35 | disposition home or self-care (01) | LOC: ED 23:52 | DX: M54.9 Dorsalgia, unspecified (principal); Z53.21 Procedure and treatment not carried out due to patient leaving prior to being seen by health care provider ==

== ENCOUNTER 2022-04-17 02:03 | Emergency (ER) | payer MEDICARE ==
[2022-04-17 03:35] VITALS: BP 150/91
== END 2022-04-18 08:53 | disposition left against medical advice (07) ==
LOC: ED 02:03
DX: R44.3 Hallucinations, unspecified (principal); Z13.30 Encounter for screening examination for mental health and behavioral disorders, unspecified; Z53.21 Procedure and treatment not carried out due to patient leaving prior to being seen by health care provider

== ENCOUNTER 2022-06-02 20:49 | Emergency (ER) | payer MEDICARE ==
[2022-06-02 22:39] VITALS: BP 139/100
[2022-06-02 23:54] LABS: BUN/Creatinine Ratio 9; Blood Urea Nitrogen 11 mg/dL (9-20); Calcium 9.7 mg/dL (8.4-10.2); Hemolysis Index 5
[2022-06-03 00:02] LABS: Basophils # (Auto) 0.1 K/mm3 (0.0-0.1); Basophils % (Auto) 0.6 % (0.0-1.8); Eosinophils # (Auto) 0.3 K/mm3 (0.0-0.4); Eosinophils % (Auto) 2.7 % (0.0-4.3); Hematocrit 37.6 % (35.5-45.6); Hemoglobin 12.2 gm/dl (11.8-15.2); Lymphocytes # (Auto) 3.2 K/mm3 (1.2-5.4); Lymphocytes % (Auto) 34.5 % (13.4-35.0); Mean Corpuscular HGB Conc 33 % (32-34); Mean Corpuscular Volume 86 fl (84-94); Monocytes # (Auto) 1.1 K/mm3 (0.0-0.8); Monocytes % (Auto) 11.7 % (0.0-7.3); Platelet Count 346 K/mm3 (140-440); Red Blood Count 4.35 M/mm3 (3.65-5.03); Red Cell Distribution Width 15.5 % (13.2-15.2)
[2022-06-03 05:50] LABS: Amphetamine Screen,Urine Negative; Benzodiazepines Screen,Urine Negative; Cocaine Screen,Urine Negative; Methadone Screen,Urine Negative; Opiate Screen,Urine Negative
[2022-06-03 06:03] LABS: Cannabinoid Screen,Urine Positive; Color,Urine Yellow (Yellow)
[2022-06-03 06:07] LABS: Mucus,Urine 3+ /HPF
--- NOTE | 2022-06-03 08:12 | Emergency Department Report ---
ED Psych HPI - General Chief Complaint: Medical Clearance Stated Complaint: MEDICAL CLEARANCE Time Seen by Provider: 06/03/22 07:56 Source: patient, EMS Mode of arrival: Ambulatory - History of Present Illness Initial Comments: 42-year-old -[place] male with history of bipolar disorder, psychosis, complains that he has been feeling more depressed lately and was again admitted to psychiatric facility patient referred here by facility to get medical clearance patient denies having any suicidal homicidal ideation. MD Complaint: feels depressed -: Gradual, week(s) (2) Associated Psychiatric Symptoms: depression History of same: Yes Quality: intermittent, getting worse Worsens With: medication Associated Symptoms: denies other symptoms Treatments Prior to Arrival: none - Related Data Home Medications Medication Instructions Recorded Confirmed Last Taken FLUoxetine HCL [PROzac] 60 mg PO DAILY 04/19/15 01/26/22 Unknown Seroquel 100 mg PO QHS 04/19/15 01/26/22 01/25/22 clonazePAM [ Klonopin] 0.5 mg PO TID 04/19/15 01/26/22 Unknown risperiDONE [RisperDAL] 4 mg PO BID 04/19/15 01/26/22 Unknown Losartan 25 mg PO ONCE 01/26/22 01/26/22 01/24/22 Norvasc 10 mg PO QAM 01/26/22 01/26/22 01/24/22 Strattera 40 mg PO ONCE 01/26/22 01/26/22 01/20/22 Previous Rx's Medication Instructions Recorded Last Taken Type Ketorolac [Toradol] 10 mg PO Q6H PRN #14 tablet 10/18/20 Unknown Rx methOCARBAMOL [Robaxin TAB] 500 mg PO Q6H PRN #20 tablet 10/18/20 Unknown Rx Cyclobenzaprine [Flexeril] 10 mg PO TID PRN #30 tab 12/27/21 Unknown Rx Menthol/Camphor [[place] 1 applicatio TP Q6H PRN #1 tab 12/27/21 Unknown Rx Ointment] Naproxen 500 mg PO BID PRN #30 tab 12/27/21 Unknown Rx Naproxen 500 mg PO Q12H PRN #30 tab 12/31/21 Unknown Rx methOCARBAMOL [Robaxin TAB] 750 mg PO Q8H PRN #60 tab 12/31/21 Unknown Rx predniSONE [Deltasone] 60 mg PO QDAY #15 tab 12/31/21 Unknown Rx traMADoL [Ultram] 50 mg PO Q6HR PRN #12 tablet 12/31/21 Unknown Rx OLANZapine [Olanzapine] 10 mg PO BID #60 01/06/22 01/25/22 Rx QUEtiapine [SEROquel] 100 mg PO QHS #30 tab 01/06/22 01/25/22 Rx amLODIPine 10 mg PO DAILY #30 tab 01/06/22 Unknown Rx busPIRone [Buspar] 15 mg PO TID #90 tab 01/06/22 01/25/22 22:00 Rx Allergies Allergy/AdvReac Type Severity Reaction Status Date / Time No Known Allergies Allergy Verified 01/15/22 13:24 ED Review of Systems ROS: Stated complaint: MEDICAL CLEARANCE Other details as noted in HPI Eyes: as per HPI ENT: as per HPI Respiratory: no symptoms reported Cardiovascular: as per HPI Endocrine: no symptoms reported, see HPI, intolerance to cold Skin: as per HPI Psychiatric: anxiety, depression. denies: auditory hallucinations, visual hallucinations, suicidal thoughts ED Past Medical Hx - Past Medical History Hx Hypertension: Yes Hx Psychiatric Treatment: Yes (BIPOLAR SCHIZOPRENIA DEPRESSION) Additional medical history: sciatica. back pain - Surgical History Hx Appendectomy: Yes Additional Surgical History: BACK SURGERY - Social History Smoking Status: Current Every Day Smoker Substance Use Type: Alcohol, Marijuana, Methamphetamines - Medications Home Medications: Home Medications Medication Instructions Recorded Confirmed Last Taken Type FLUoxetine HCL [PROzac] 60 mg PO DAILY 04/19/15 01/26/22 Unknown History Seroquel 100 mg PO QHS 04/19/15 01/26/22 01/25/22 History clonazePAM [ Klonopin] 0.5 mg PO TID 04/19/15 01/26/22 Unknown History risperiDONE [RisperDAL] 4 mg PO BID 04/19/15 01/26/22 Unknown History Ketorolac [Toradol] 10 mg PO Q6H PRN #14 tablet 10/18/20 01/26/22 Unknown Rx methOCARBAMOL [Robaxin TAB] 500 mg PO Q6H PRN #20 tablet 10/18/20 01/26/22 Unknown Rx Cyclobenzaprine [Flexeril] 10 mg PO TID PRN #30 tab 12/27/21 01/26/22 Unknown Rx Menthol/Camphor [[place] 1 applicatio TP Q6H PRN #1 tab 12/27/21 01/26/22 Unknown Rx Ointment] Naproxen 500 mg PO BID PRN #30 tab 12/27/21 01/26/22 Unknown Rx Naproxen 500 mg PO Q12H PRN #30 tab 12/31/21 01/26/22 Unknown Rx methOCARBAMOL [Robaxin TAB] 750 mg PO Q8H PRN #60 tab 12/31/21 01/26/22 Unknown Rx predniSONE [Deltasone] 60 mg PO QDAY #15 tab 12/31/21 01/26/22 Unknown Rx traMADoL [Ultram] 50 mg PO Q6HR PRN #12 tablet 12/31/21 01/26/22 Unknown Rx OLANZapine [Olanzapine] 10 mg PO BID #60 01/06/22 01/25/22 Rx QUEtiapine [SEROquel] 100 mg PO QHS #30 tab 01/06/22 01/26/22 01/25/22 Rx amLODIPine 10 mg PO DAILY #30 tab 01/06/22 01/26/22 Unknown Rx busPIRone [Buspar] 15 mg PO TID #90 tab 01/06/22 01/26/22 01/25/22 22:00 Rx Losartan 25 mg PO ONCE 01/26/22 01/26/22 01/24/22 History Norvasc 10 mg PO QAM 01/26/22 01/26/22 01/24/22 History Strattera 40 mg PO ONCE 01/26/22 01/26/22 01/20/22 History ED Physical Exam - General Limitations: No Limitations General appearance: alert, in no apparent distress - Head Head exam: Present: atraumatic, normocephalic - Eye Eye exam: Present: normal appearance, PERRL, EOMI Pupils: Present: normal accommodation - ENT ENT exam: Present: normal exam, normal orophraynx, mucous membranes moist - Neck Neck exam: Present: normal inspection - Respiratory Respiratory exam: Present: normal lung sounds bilaterally. Absent: respiratory distress - Cardiovascular Cardiovascular Exam: Present: regular rate, normal rhythm, normal heart sounds. Absent: systolic murmur, diastolic murmur, rubs, gallop - GI/Abdominal GI/Abdominal exam: Present: soft, normal bowel sounds - Back Exam Back exam: Present: normal inspection, full ROM - Neurological Exam Neurological exam: Present: alert, oriented X3, CN II-XII intact, normal gait. Absent: motor sensory deficit - Psychiatric Psychiatric exam: Present: depressed, anxious - Skin Skin exam: Present: warm ED Course Vital Signs 06/02/22 22:37 Temperature 98.2 F Pulse Rate 83 Respiratory 16 Rate Blood Pressure 139/100 [Right] O2 Sat by Pulse 98 Oximetry ED Medical Decision Making - Lab Data Result diagrams: 06/02/22 23:01 06/02/22 23:01 Critical care attestation.: If time is entered above; I have spent that time in minutes in the direct care of this critically ill patient, excluding procedure time. ED Disposition Clinical Impression: Depression Disposition: [address] [place] [address] Is pt being admited?: No Does the pt Need Aspirin: No Condition: Good
== END 2022-06-03 15:52 ==
LOC: ED 20:49
DX: F32.9 Major depressive disorder, single episode, unspecified (principal); I10 Essential (primary) hypertension; F20.9 Schizophrenia, unspecified; F12.90 Cannabis use, unspecified, uncomplicated; F15.90 Other stimulant use, unspecified, uncomplicated; F17.200 Nicotine dependence, unspecified, uncomplicated; Z72.89 Other problems related to lifestyle; Z79.899 Other long term (current) drug therapy
CPT/HCPCS: 36415; 80048; 80178; 80307; 80320; 81001; 85025; 99285; G0480